=== PATIENT | female | born 1975 | race Two or more races ===

== ENCOUNTER 2025-05-14 09:13 | Outpatient (RCR) | payer MEDICAID, SELFPAY ==
--- NOTE | 2025-05-14 13:01 | CTCCONSULT_ITS ---
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 No dose reduction was done. Anastrozole caused itching Started on palbociclib and fulvestrant. Last dose of fulvestrant about 3 months ago. Patient is on Ibrance 05/14/2025 started on letrozole and ribociclib. Will keep fulvestrant for second line drugs HISTORY OF PRESENT ILLNESS: 49-year-old female with a diagnosis of ER NV positive HER2 2+ breast cancer. Patient was seen by oncologist after she was worked up for her arthritis and found to have multiple swellings on her head. Patient had intracranial bleed which led to the biopsy of the lymph node in her axilla confirming her diagnosis of breast cancer. Fortunately patient did not had any visceral involvement with cancer but had metastasis to her bones as well as to the brain. There was no masses seen in the brain as per documentation by an outside oncologist. OTHER MEDICAL HISTORY/CONDITIONS: Metastatic mammory carcinoma - dx 01/22/24 Diabetes Hyperlipidemia Perpheral neuropathy Depression/Anxiety Right axillary lymph node excisional biopsy - 01/22/24 FAMILY HISTORY: Cancer History:?Pat aunt - breast - dx 30's; Pat aunt - kidney - dx 60's SOCIAL HISTORY: Occupational?History:?Disabled Education?Level:?Completed High School Marital?Status:?Single Tobacco Use:?Quit 7 yrs ago; smoked 30yrs - 4-5 cigarettes/day ETOH?Use:?Denies Drug?Note:?Denies Social?History?Note:?Lives?with?dtrs [employer] 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 atorvastatin - 10 mg 1 tab Daily 2. Calcium 600 with Vitamin D3 - 600 mg-12.5 mcg (500 unit) 1 Capsule 1 CAPSULE TWICE DAILY 3. gabapentin - 300 mg 1 Capsule Twice a Day 4. Kisqali - 600 mg/day (200 mg x 3) 600 mg Daily 5. letrozole - 2.5 mg 1 tab Daily 6. metFORMIN - 500 mg 1 tab Twice a Day 7. ondansetron - 8 mg 1 tab 1 tab every 8hrs prn 8. ribociclib - 600 mg/day (200 mg x 3) 3 tab Daily 9. TylenoL - 500 mg 1 tab As directed?Palabra Meds? Medications Last Reconciled by Yue Mcdaniel RN on 05/14/2025 ALLERGIES: No Known Drug Allergies REVIEW OF SYSTEMS: A complete 14-point review of systems was performed and is negative except as noted in interval history. PHYSICAL EXAMINATION: VITAL SIGNS: Temperature?98.8, B/P?130/88, Height?56?inches, Oxygen?Saturation?97% Weight?151?lbs PAIN: 0 - No pain GENERAL APPEARANCE: Appears well, in no apparent distress, appropriately interactive. HEENT: Normocephalic, no temporal wasting, normal conjunctiva, no scleral icterus, normal hearing, lips without lesions, neck normal range of motion. CARDIOVASCULAR: Not assessed. PULMONARY: Normal respiratory effort, no respiratory distress or use of accessory muscles, speaking in full sentences, no tachypnea. EXTREMITIES: No pedal edema or cyanosis. SKIN: Normal skin appearance. NEUROLOGIC: Alert and oriented x4. PSHYCHIATRIC: Appropriate affect, mood normal, behavior normal, intact thought and speech. LABORATORY DATA: I have personally reviewed and interpreted each of the patient?s relevant lab tests, abnormal findings are below: Date ASSESSMENT/PLAN: ER positive HER2 2+ breast cancer Metastatic with bone and likely brain met Will start on ribociclib and letrozole\ counseled patient to continue Ibrance until she receive new ribociclib Advised to start taking letrozole immediately Calcium and vitamin D3 daily Will start on Zometa Will get PET CT scan to evaluate metastatic disease Will get brain MRI to see brain metastasis Patient will need director of social services follow-up Patient have young children and very little social support ORDERS: Order # Description [id number] PET/CT of Skull to mid-thigh for Restaging [id number] MRI + Brain + With W/O Contrast [id number] Follow Up 4 Week [id number] CBC with Auto Diff + Comprehensive Metabolic Panel - 12 RETURN TO CLINIC: I reviewed the diagnosis, prognosis, and recommended treatment/procedure options with the patient (and/or their legal software support representative), including the potential benefits, risks, side effects and alternative therapies. We also discussed the option of no treatment and the possibility of clinical trial participation, if applicable. All questions were addressed, and they demonstrated understanding. They provided informed consent to proceed with the proposed plan of care. BILLING AND COMPLIANCE: I reviewed external records from providers outside my specialty as summarized above. I spent a total of 50 minutes on this patient?s care on the day of their visit excluding time spent related to any billed procedures. This time includes time spent with the patient as well as time spent documenting in the medical record, reviewing patients records and tests, obtaining history, placing orders, communicating with other healthcare professionals, counseling the patient, family or caregiver, and/or care coordination for the diagnoses above. Electronically Signed by: Herbert Ontiveros MD T: 12:59 PM CC: PCP: Referring: Evaristo Foley This document was completed utilizing speech recognition software. Grammatical errors, random word insertions, pronoun errors, and incomplete sentences are an occasional consequence of this system due to software limitations, ambient noise, and hardware issues. Any formal questions or concerns about the content, text or information contained within the body of this dictation should be directly addressed to the provider for clarification.
== END 2025-05-18 23:59 | disposition home or self-care (01) ==
LOC: SCTC 09:13
PROVIDERS: PCP Physician Assistant; Referring Provider Physician Assistant; Visit Provider Internal Medicine Hematology & Oncology
DX: C50.911 Malignant neoplasm of unspecified site of right female breast (principal); C79.51 Secondary malignant neoplasm of bone; Z17.0 Estrogen receptor positive status [ER+]; Z17.22 Progesterone receptor negative status; Z17.31 Human epidermal growth factor receptor 2 positive status
CPT/HCPCS: 99213; G0463

== ENCOUNTER → 2025-06-11 | Outpatient (CLI) | payer MEDICAID, SELFPAY ==
--- NOTE | 2025-06-11 09:49 | EKG_ITS ---
[facility] Test Date: 2025-06-11 Pat Name: MONIQUE MILTON Department: Room: - Gender: Female Manager Steel: SUNG : 1975 Requested By: Herbert Ontiveros Order Number: [id number] Reading MD: Herbert Ontiveros Measurements Intervals [place] Rate: 72 P: 32 VT: 140 QRS: 17 QRSD: 81 T: -1 QT: 362 QTc: 397 Interpretive Statements SINUS RHYTHM POSSIBLE RIGHT VENTRICULAR CONDUCTION DELAY [RSR (QR) IN V1/V2] NONSPECIFIC T-WAVE ABNORMALITY No previous ECG available for comparison /store/S0/[id number]/[id number].pdf
== END | disposition home or self-care (01) ==
PROVIDERS: PCP Family Medicine; Referring Provider Internal Medicine Hematology & Oncology; Visit Provider Internal Medicine Hematology & Oncology
DX: C50.911 Malignant neoplasm of unspecified site of right female breast (principal)
CPT/HCPCS: 93005

== ENCOUNTER 2025-06-18 10:34 | Outpatient (RCR) | payer MEDICAID, SELFPAY ==
--- NOTE | 2025-06-18 11:39 | CTCFLWUP_ITS ---
Patient: MONIQUE MILTON : 1975 Page 4 of 6 FOLLOW UP NOTE DATE OF SERVICE: 06/18/2025 NAME: MONIQUE MILTON ACCOUNT: [id number] : 1975 AGE: 49 INTERVAL HISTORY: Patient is complaining of mild fatigue and constipation. She have very hard stools Patient is on anastrozole and Kisqali and doing well. She is scheduled to get her PET CT scan and MRI brain which was ordered at the last appointment. ONCOLOGY HISTORY: DIAGNOSIS: ER/CO positive breast cancer HER2 2+ DATE OF DIAGNOSIS: 01/22/2024 STAGE/TNM: Stage IV with brain and bone mets TREATMENT HISTORY: Care?Plan Start?Date Cycle Day Intent HISTORY OF PRESENT ILLNESS: 49-year-old female with a diagnosis of ER CO positive HER2 2+ breast cancer. Patient was seen by oncologist after she was worked up for her arthritis and found to have multiple swellings on her head. Patient had intracranial bleed which led to the biopsy of the lymph node in her axilla confirming her diagnosis of breast cancer. Fortunately patient did not had any visceral involvement with cancer but had metastasis to her bones as well as to the brain. There was no masses seen in the brain as per documentation by an outside oncologist. OTHER MEDICAL HISTORY/CONDITIONS: Metastatic mammory carcinoma - dx 01/22/24 Diabetes Hyperlipidemia Perpheral neuropathy Depression/Anxiety Right axillary lymph node excisional biopsy - 01/22/24 FAMILY HISTORY: Cancer History:?Pat aunt - breast - dx 30's; Pat aunt - kidney - dx 60's SOCIAL HISTORY: Occupational?History:?Disabled Education?Level:?Completed High School Marital?Status:?Single Tobacco Use:?Quit 7 yrs ago; smoked 30yrs - 4-5 cigarettes/day ETOH?Use:?Denies Drug?Note:?Denies Social?History?Note:?Lives?with?dtrs [employer]IAISON 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 atorvastatin - 10 mg 1 tab Daily 2. Calcium 600 with Vitamin D3 - 600 mg-12.5 mcg (500 unit) 1 Capsule 1 CAPSULE TWICE DAILY 3. gabapentin - 300 mg 1 Capsule Twice a Day 4. Kisqali - 600 mg/day (200 mg x 3) 600 mg Daily 5. Lax Stool Softener With Senna - 8.6-50 mg 2 tab Daily 6. letrozole - 2.5 mg 1 tab Daily 7. metFORMIN - 500 mg 1 tab Twice a Day 8. ondansetron - 8 mg 1 tab 1 tab every 8hrs prn 9. pantoprazole - 40 mg 1 tab Daily 10. ribociclib - 600 mg/day (200 mg x 3) 3 tab Daily 11. TylenoL - 500 mg 1 tab As directed 12. Women's 50+ Daily Formula - 400 mcg-500 mg calcium-20 mcg 1 tab Daily Medications Last Reconciled by Marysol Tran MD on 06/18/2025 ALLERGIES: No Known Drug Allergies REVIEW OF SYSTEMS: A complete 14-point review of systems was performed and is negative except as noted in interval history. PHYSICAL EXAMINATION: VITAL SIGNS: Temperature?97, B/P?143/82, Oxygen?Saturation?97% Weight?159?lbs PAIN: 0 - No pain ECOG Performance Status: 1 - Symptomatic; ambulatory; restricted in strenuous activity GENERAL APPEARANCE: Appears well, in no apparent distress, appropriately interactive. HEENT: Normocephalic, no temporal wasting, normal conjunctiva, no scleral icterus, normal hearing, lips without lesions, neck normal range of motion. CARDIOVASCULAR: Not assessed. PULMONARY: Normal respiratory effort, no respiratory distress or use of accessory muscles, speaking in full sentences, no tachypnea. EXTREMITIES: No pedal edema or cyanosis. SKIN: Normal skin appearance. NEUROLOGIC: Alert and oriented x4. PSHYCHIATRIC: Appropriate affect, mood normal, behavior normal, intact thought and speech. LABORATORY DATA: I have personally reviewed and interpreted each of the patient?s relevant lab tests, abnormal findings are below: Date ASSESSMENT/PLAN: ER positive HER2 2+ breast cancer Metastatic with bone and likely brain met Continue ribociclib and letrozole\ Calcium and vitamin D3 daily RTC in 4 weeks to follow-up on imaging Macrocytic anemia Ordered B12 folic acid and iron studies Advised to take multivitamin once patient has completed labs Advised to add vegetables and fruits to her diet Will follow on the labs at the next visit ORDERS: Order # Description [id number] Follow Up 4 Week RETURN TO CLINIC: I reviewed the diagnosis, prognosis, and recommended treatment/procedure options with the patient (and/or their legal advertising account representative), including the potential benefits, risks, side effects and alternative therapies. We also discussed the option of no treatment and the possibility of clinical trial participation, if applicable. All questions were addressed, and they demonstrated understanding. They provided informed consent to proceed with the proposed plan of care. BILLING AND COMPLIANCE: I reviewed external records from providers outside my specialty as summarized above. I spent a total of 50 minutes on this patient?s care on the day of their visit excluding time spent related to any billed procedures. This time includes time spent with the patient as well as time spent documenting in the medical record, reviewing patients records and tests, obtaining history, placing orders, communicating with other healthcare professionals, counseling the patient, family or caregiver, and/or care coordination for the diagnoses above. Electronically Signed by: Herbert Ontiveros MD T: 11:37 AM CC: PCP: Referring: Kwasi Dias This document was completed utilizing speech recognition software. Grammatical errors, random word insertions, pronoun errors, and incomplete sentences are an occasional consequence of this system due to software limitations, ambient noise, and hardware issues. Any formal questions or concerns about the content, text or information contained within the body of this dictation should be directly addressed to the provider for clarification.
== END 2025-07-18 23:59 | disposition home or self-care (01) ==
LOC: SCTC 10:34
PROVIDERS: PCP Physician Assistant; Referring Provider Family Medicine; Visit Provider Internal Medicine Hematology & Oncology
DX: C50.911 Malignant neoplasm of unspecified site of right female breast (principal); C79.51 Secondary malignant neoplasm of bone; Z79.811 Long term (current) use of aromatase inhibitors; Z17.0 Estrogen receptor positive status [ER+]; Z17.31 Human epidermal growth factor receptor 2 positive status; Z17.22 Progesterone receptor negative status; D53.9 Nutritional anemia, unspecified
CPT/HCPCS: 99212; G0463

== ENCOUNTER → 2025-06-25 | Outpatient (CLI) | payer MEDICAID, SELFPAY ==
--- NOTE | 2025-06-25 10:35 | EKG_ITS ---
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
[2025-06-25 12:08] LABS: Basophils # (Auto) 0.1 Thou/mm3 (0.0-0.2); Basophils % (Auto) 1 % (0-2.5); Eosinophils # (Auto) 0.1 Thou/mm3 (0.0-0.5); Eosinophils % (Auto) 1 % (0-10); Hematocrit 30.9 % (36.0-46.0); Hemoglobin 10.3 g/dL (12.0-16.0); Immature Granulocytes Auto 0.03 Thou/mm3 (0.00-0.00); Lymphocytes # (Auto) 2.6 Thou/mm3 (1.0-4.8); Lymphocytes % (Auto) 47 % (10-50); Mean Corpuscular HGB Conc 33.3 g/dl (31.0-37.0); Mean Corpuscular Hemoglobin 37.1 pg (25.0-35.0); Mean Corpuscular Volume 111 fL (80-100); Monocytes # (Auto) 0.7 Thou/mm3 (0.0-0.8); Monocytes % (Auto) 12 % (0-12); Neutrophils # (Auto) 2.1 Thou/mm3 (1.8-7.7); Neutrophils % (Auto) 37 % (37-80); Nucleated Red Blood Cell # 0.04 Thou/mm3 (0.00-0.00); Nucleated Red Blood Cell % 1 /100 WBC (0); Platelet Count 228 Thou/mm3 (140-440); RDW Standard Deviation 65.5 fL (36.4-46.3); Red Blood Count 2.78 Miln/mm3 (4.00-5.20); White Blood Count 5.6 Thou/mm3 (3.6-11.0)
[2025-06-25 12:17] LABS: Alanine Aminotransferase 37 U/L (10-49); Albumin, Serum 4.7 gm/dL (3.5-5.0); Albumin/Globulin Ratio 1.8 (1.2-2.2); Alkaline Phosphatase 71 U/L (46-116); Anion Gap 15 (7-16); Aspartate Amino Transferase 45 U/L (0-34); BUN/Creatinine Ratio 7 Ratio (12-20); Bilirubin,Total 0.6 mg/dL (0.3-1.2); Blood Urea Nitrogen 10 mg/dL (9-23); Calcium 9.7 mg/dL (8.3-10.6); Calcium (Corrected) 9.7 mg/dL (8.5-10.1); Carbon Dioxide 22.1 mMol/L (20.0-31.0); Chloride 104 mMol/L (98-107); Creatinine (Component) 1.4 mg/dL (0.6-1.3); Globulin 2.6 gm/dL (2.3-3.5); Glucose 226 mg/dL (74-106); Osmolality,Calculated 287 (275-295); Potassium 3.9 mMol/L (3.4-5.1); Sodium 141 mMol/L (136-145); Total Protein 7.3 gm/dL (5.7-8.2); eGFR 46 See Note
[2025-06-25 17:04] LABS: Path Review Blood Smear Sent to Pathologist
== END | disposition home or self-care (01) ==
LOC: SEKG 10:13
PROVIDERS: PCP Physician Assistant; Referring Provider Internal Medicine Hematology & Oncology; Visit Provider Internal Medicine Hematology & Oncology
DX: C50.911 Malignant neoplasm of unspecified site of right female breast (principal)
CPT/HCPCS: 36415; 80053; 85025; 93005

== ENCOUNTER → 2025-07-08 | Outpatient (CLI) | payer MEDICAID, SELFPAY ==
[2025-07-08 09:52] LABS: HCG Qualitative,Urine Negative
--- NOTE | 2025-07-08 10:15 | XR_ITS ---
EXAMINATION: PET/CT FUSION SKULL TO THIGH EXAM DATE AND TIME: July 08, 2025, 1125 hours, no priors INDICATIONS: Breast cancer diagnosis restaging posttreatment CTDI:vol (mGy) 6.03 DLP: (mGycm) 476.26 PROCEDURE: 15.3 mCi FDG was administered intravenously To allow for distribution and uptake of radiotracer, the patient was allowed to rest quietly in a shielded room. Imaging was performed on an integrated 16-slice PET/CT scanner, with scanning from the skull base to the mid thigh. Serum blood glucose at the time of the injection was measured 146 mg/dL. CT scanning was performed without oral or intravenous contrast material. FINDINGS: Head and Neck: There is no edith hypermetabolism in the neck. The visualized portions of the brain are normal in appearance on CT. Chest: There is no edith hypermetabolism in the chest. There are no pulmonary nodules. No breast, chest wall or hypermetabolic axillary activity Abdomen and Pelvis: There is no edith hypermetabolism in retroperitoneal or pelvic chains. The spleen is normal in size and FDG avidity. Musculoskeletal: Widespread osteoblastic metastatic disease involving all visualized osseous structures IMPRESSION: Widespread osteoblastic metastatic disease involving all visualized osseous structures
== END | disposition home or self-care (01) ==
LOC: CDIM 08:50 → COPL 09:15 → CDIM 07-23 09:30
PROVIDERS: Referring Provider Internal Medicine Hematology & Oncology; Visit Provider Internal Medicine Hematology & Oncology
DX: C79.9 Secondary malignant neoplasm of unspecified site (principal); C50.911 Malignant neoplasm of unspecified site of right female breast; Z32.00 Encounter for pregnancy test, result unknown
CPT/HCPCS: 78815; 81025; A9552

== ENCOUNTER → 2025-07-09 | Outpatient (CLI) | payer MEDICAID, SELFPAY ==
--- NOTE | 2025-07-09 12:19 | EKG_ITS ---
[facility] Test Date: 2025-07-09 Pat Name: MONIQUE MILTON Department: Room: - Gender: Female Hand Sole Sewer: NAEL : 1975 Requested By: Herbert Ontiveros Order Number: [id number] Reading MD: Herbert Ontiveros Measurements Intervals [place] Rate: 66 P: 41 AR: 139 QRS: 20 QRSD: 86 T: 10 QT: 350 QTc: 369 Interpretive Statements SINUS RHYTHM POSSIBLE RIGHT VENTRICULAR CONDUCTION DELAY [RSR (QR) IN V1/V2] NONSPECIFIC ST & T-WAVE ABNORMALITY Compared to ECG 06/25/2025 10:59:11 T-wave abnormality now present /store/S0/[id number]/ecg/[id number].pdf
[2025-07-09 12:41] LABS: Basophils # (Auto) 0.0 Thou/mm3 (0.0-0.2); Basophils % (Auto) 1 % (0-2.5); Eosinophils # (Auto) 0.1 Thou/mm3 (0.0-0.5); Eosinophils % (Auto) 2 % (0-10); Hematocrit 28.2 % (36.0-46.0); Hemoglobin 9.4 g/dL (12.0-16.0); Immature Granulocytes Auto 0.02 Thou/mm3 (0.00-0.00); Lymphocytes # (Auto) 2.3 Thou/mm3 (1.0-4.8); Lymphocytes % (Auto) 50 % (10-50); Mean Corpuscular HGB Conc 33.3 g/dl (31.0-37.0); Mean Corpuscular Hemoglobin 36.9 pg (25.0-35.0); Mean Corpuscular Volume 111 fL (80-100); Monocytes # (Auto) 0.3 Thou/mm3 (0.0-0.8); Monocytes % (Auto) 7 % (0-12); Neutrophils # (Auto) 1.9 Thou/mm3 (1.8-7.7); Neutrophils % (Auto) 41 % (37-80); Nucleated Red Blood Cell # 0.00 Thou/mm3 (0.00-0.00); Nucleated Red Blood Cell % 0 /100 WBC (0); Platelet Count 234 Thou/mm3 (140-440); RDW Standard Deviation 61.5 fL (36.4-46.3); Red Blood Count 2.55 Miln/mm3 (4.00-5.20); White Blood Count 4.6 Thou/mm3 (3.6-11.0)
[2025-07-09 12:50] LABS: Alanine Aminotransferase 40 U/L (10-49); Albumin, Serum 4.6 gm/dL (3.5-5.0); Albumin/Globulin Ratio 2.3 (1.2-2.2); Alkaline Phosphatase 52 U/L (46-116); Anion Gap 15 (7-16); Aspartate Amino Transferase 65 U/L (0-34); BUN/Creatinine Ratio 12 Ratio (12-20); Bilirubin,Total 0.4 mg/dL (0.3-1.2); Blood Urea Nitrogen 23 mg/dL (9-23); Calcium 9.9 mg/dL (8.3-10.6); Calcium (Corrected) 9.9 mg/dL (8.5-10.1); Carbon Dioxide 21.4 mMol/L (20.0-31.0); Chloride 107 mMol/L (98-107); Creatinine (Component) 1.9 mg/dL (0.6-1.3); Globulin 2.0 gm/dL (2.3-3.5); Glucose 146 mg/dL (74-106); Osmolality,Calculated 291 (275-295); Potassium 4.4 mMol/L (3.4-5.1); Sodium 143 mMol/L (136-145); Total Protein 6.6 gm/dL (5.7-8.2); eGFR 32 See Note
== END | disposition home or self-care (01) ==
PROVIDERS: Referring Provider Internal Medicine Hematology & Oncology; Visit Provider Internal Medicine Hematology & Oncology
DX: C50.911 Malignant neoplasm of unspecified site of right female breast (principal)
CPT/HCPCS: 36415; 80053; 85025; 93005

== ENCOUNTER → 2025-07-16 | Outpatient (CLI) | payer MEDICAID, SELFPAY ==
--- NOTE | 2025-07-16 10:30 | ECHO_ITS ---
Patient Info Name: Brittnee Chase Age: 49 years : 1975 Gender: Female Ht: 145 cm Wt: 61 kg BSA: 1.59 m2 BP: 134 / 71 mmHg HR: 70 bpm Exam Date: 07/16/2025 10:55 AM Admit Date: 07/16/2025 Site: [facility] Room Number: Echo room Patient Status: P Technical Quality: Fair Exam Type: CA echo doppler complete Unmanned Equipment Operator: Rhianna Park Ordering Physician: Herbert Ontiveros Referring Physician: Herbert Ontiveros Study Info Indications Malignant neoplasm of unspecified site of right female breas - Primary Location: SDIM Left Ventricular Outflow Tract Name Value Normal LVOT 2D LVOT Diameter 1.8 cm LVOT Doppler LVOT Peak Velocity 128 cm/s LVOT Mean Gradient 3 mmHg LVOT VTI 23 cm LVOT VTI/AV VTI Ratio 0.8 LVOT Stroke Volume 58 ml Pulmonic Valve Name Value Normal PV Doppler PV Peak Velocity 112 cm/s Mitral Valve Name Value Normal MV Doppler MV Decel Payette 352 cm/s2 MV PHT 66 ms MV Area (PHT) 3.3 cm2 4.0-5.0 MV Diastolic Function MV E Peak Velocity 81 cm/s MV A Peak Velocity 78 cm/s MV E/A 1.0 MV Annular TDI MV Septal e' Velocity 5.6 cm/s MV E/e' (Septal) 14.5 MV Lateral e' Velocity 9.9 cm/s MV E/e' (Lateral) 8.1 MV e' Average 7.73 cm/s MV E/e' (Average) 11.3 Tricuspid Valve Name Value Normal TV Regurgitation Doppler TR Peak Velocity 255 cm/s Estimated PAP/RSVP RA Pressure 3 mmHg <=5 PA Systolic Pressure 29 mmHg <36 RV Systolic Pressure 29 mmHg <36 Aortic Valve Name Value Normal AV 2D/MM AV Cusp Sep (MM) 1.4 cm AV Doppler AV Peak Velocity 158 cm/s AV Mean Gradient 5 mmHg AV VTI 30 cm AV Area (Cont Eq VTI) 2.0 cm2 >=3.0 AV Area (Cont Eq Franky) 2.1 cm2 AV DI (Franky) 0.81 AV Regurgitation 2D LVOT Area 2.5 cm2 Ventricles Name Value Normal LV Dimensions 2D/MM IVS Diastolic Thickness (2D) 0.8 cm 0.6-0.9 LVID Diastole (2D) 3.8 cm 3.8-5.2 LVIW Diastolic Thickness (2D) 1.0 cm 0.6-0.9 LVID Systole (2D) 2.5 cm 2.2-3.5 LVOT Diameter 1.8 cm LV Mass (2D Cubed) 101.06 g 67.00-162.00 LV Mass Index (2D Cubed) 63 g/m2 43-95 Relative Wall Thickness (2D) 0.53 <=0.42 IVS/LVIW Diastolic Thickness (2D) 0.80 0.00-1.50 LV Fractional Shortening/Ejection Fraction 2D/MM LV Fractional Shortening (2D) 34 % 27-45 LV EF (2D Teichholz) 64 % Atria Name Value Normal LA Dimensions LA Volume (4C A-L) 34 ml LA Volume (BP A-L) 28 ml Left Ventricle Left ventricular chamber dimension is normal. Left ventricular systolic function is normal with visually estimated ejection fraction of 60-65%. There is normal geometry noted in the left ventricle. Left ventricular segmental wall motion is normal. The left ventricular diastolic function is normal. Right Ventricle Right ventricular chamber dimension is normal. Right ventricular systolic function is normal. Left Atrium Left atrial chamber dimension is normal. Right Atrium Right atrial chamber dimension is normal. Aortic Valve The aortic valve is trileaflet. There is no aortic valve sclerosis. There is no aortic valve stenosis with a peak velocity of 158 cm/s, mean gradient of 5 mmHg, and aortic valve area of 2.0 cm2. There is no aortic valve regurgitation. Pulmonic Valve The pulmonic valve is normal. There is no pulmonic valve stenosis. There is trace pulmonic regurgitation. Mitral Valve The mitral valve has normal leaflets. There is no mitral valve stenosis. There is trace mitral valve regurgitation. Tricuspid Valve The tricuspid valve leaflets are normal. There is no significant tricuspid valve stenosis. There is mild tricuspid valve regurgitation. No pulmonary hypertension, estimated pulmonary arterial systolic pressure is 29 mmHg and systemic blood pressure of 134 mmHg in systole. Pericardium/Pleural The pericardium appears normal. There is no pericardial effusion. No pleural effusion visualized. Inferior Vena Cava Normal inferior vena cava with >50% collapse upon inspiration consistent with normal right atrial pressure, 3 mmHg. Aorta The aortic measurements are indexed to age and body surface area. The aortic root at the sinus of Valsalva is not well visualized. The prox ascending aorta is not well visualized. Summary 1. Left ventricle size is normal and systolic function is normal. Visually estimated ejection fraction is 60-65%. The diastolic function is normal. 2. Right ventricle size is normal and systolic function is normal. Estimated PASP is 29 mmHg. 3. There is tricuspid mild regurgitation. 4. There is trace regurgitation. 5. Normal IVC with estimated RA pressure 3 mmHg. Report Signatures Finalized by Pearl Palafox on 07/21/2025 01:55 PM
== END | disposition home or self-care (01) ==
PROVIDERS: PCP Physician Assistant; Referring Provider Internal Medicine Hematology & Oncology; Visit Provider Internal Medicine Hematology & Oncology
DX: I08.1 Rheumatic disorders of both mitral and tricuspid valves (principal); C50.911 Malignant neoplasm of unspecified site of right female breast
CPT/HCPCS: 93306

== ENCOUNTER → 2025-07-22 | Outpatient (CLI) | payer MEDICAID, SELFPAY ==
[2025-07-22 07:15] LABS: HCG Qualitative,Urine Negative
== END | disposition home or self-care (01) ==
PROVIDERS: PCP Physician Assistant; Referring Provider Internal Medicine Hematology & Oncology; Visit Provider Internal Medicine Hematology & Oncology
DX: Z53.8 Procedure and treatment not carried out for other reasons (principal); C50.911 Malignant neoplasm of unspecified site of right female breast; Z32.00 Encounter for pregnancy test, result unknown
CPT/HCPCS: 81025

== ENCOUNTER → 2025-07-23 | Outpatient (CLI) | payer MEDICAID, SELFPAY ==
--- NOTE | 2025-07-23 09:38 | EKG_ITS ---
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
[2025-07-23 10:31] LABS: Basophils # (Auto) 0.1 Thou/mm3 (0.0-0.2); Basophils % (Auto) 1 % (0-2.5); Eosinophils # (Auto) 0.1 Thou/mm3 (0.0-0.5); Eosinophils % (Auto) 1 % (0-10); Hematocrit 26.3 % (36.0-46.0); Hemoglobin 8.9 g/dL (12.0-16.0); Immature Granulocytes Auto 0.03 Thou/mm3 (0.00-0.00); Lymphocytes # (Auto) 2.2 Thou/mm3 (1.0-4.8); Lymphocytes % (Auto) 48 % (10-50); Mean Corpuscular HGB Conc 33.8 g/dl (31.0-37.0); Mean Corpuscular Hemoglobin 37.4 pg (25.0-35.0); Mean Corpuscular Volume 111 fL (80-100); Monocytes # (Auto) 0.4 Thou/mm3 (0.0-0.8); Monocytes % (Auto) 10 % (0-12); Neutrophils # (Auto) 1.7 Thou/mm3 (1.8-7.7); Neutrophils % (Auto) 38 % (37-80); Nucleated Red Blood Cell # 0.00 Thou/mm3 (0.00-0.00); Nucleated Red Blood Cell % 0 /100 WBC (0); Platelet Count 221 Thou/mm3 (140-440); RDW Standard Deviation 62.0 fL (36.4-46.3); Red Blood Count 2.38 Miln/mm3 (4.00-5.20); White Blood Count 4.5 Thou/mm3 (3.6-11.0)
[2025-07-23 10:44] LABS: Alanine Aminotransferase 34 U/L (10-49); Albumin, Serum 4.5 gm/dL (3.5-5.0); Albumin/Globulin Ratio 2.4 (1.2-2.2); Alkaline Phosphatase 55 U/L (46-116); Anion Gap 9 (7-16); Aspartate Amino Transferase 48 U/L (0-34); BUN/Creatinine Ratio 10 Ratio (12-20); Bilirubin,Total 0.3 mg/dL (0.3-1.2); Blood Urea Nitrogen 11 mg/dL (9-23); Calcium 9.3 mg/dL (8.3-10.6); Calcium (Corrected) 9.3 mg/dL (8.5-10.1); Carbon Dioxide 24.0 mMol/L (20.0-31.0); Chloride 112 mMol/L (98-107); Creatinine (Component) 1.1 mg/dL (0.6-1.3); Globulin 1.9 gm/dL (2.3-3.5); Glucose 152 mg/dL (74-106); Osmolality,Calculated 291 (275-295); Potassium 4.1 mMol/L (3.4-5.1); Sodium 145 mMol/L (136-145); Total Protein 6.4 gm/dL (5.7-8.2); eGFR > 60 See Note
== END | disposition home or self-care (01) ==
PROVIDERS: Referring Provider Internal Medicine Hematology & Oncology; Visit Provider Internal Medicine Hematology & Oncology
DX: C50.911 Malignant neoplasm of unspecified site of right female breast (principal)
CPT/HCPCS: 36415; 80053; 85025; 93005

== ENCOUNTER 2025-07-31 11:55 | Outpatient (RCR) | payer MEDICAID, SELFPAY ==
--- NOTE | 2025-08-03 19:17 | CTCFLWUP_ITS ---
Patient: MONIQUE MILTON : 1975 Page 4 of 6 FOLLOW UP NOTE DATE OF SERVICE: 07/31/2025 NAME: MONIQUE MILTON ACCOUNT: [id number] : 1975 AGE: 50 INTERVAL HISTORY: Patient is complaining of mild fatigue and constipation. She have very hard stools Patient is on anastrozole and Kisqali and doing well. She is scheduled to get her PET CT scan and MRI brain which was ordered at the last appointment. Could not get her MRI completed as her creatinine was elevated. ONCOLOGY HISTORY:?[facility] Hx? DIAGNOSIS: ER/PA positive breast cancer HER2 2+ DATE OF DIAGNOSIS: 01/22/2024 STAGE/TNM: Stage IV with brain and bone mets TREATMENT HISTORY: Care?Plan Start?Date Cycle Day Intent HISTORY OF PRESENT ILLNESS: 50-year-old female with a diagnosis of ER PA positive HER2 2+ breast cancer. Patient was seen by oncologist after she was worked up for her arthritis and found to have multiple swellings on her head. Patient had intracranial bleed which led to the biopsy of the lymph node in her axilla confirming her diagnosis of breast cancer. Fortunately patient did not had any visceral involvement with cancer but had metastasis to her bones as well as to the brain. There was no masses seen in the brain as per documentation by an outside oncologist. 07/08/[address] scan shows widespread osteoblastic metastatic disease involving all visualized osseous structures OTHER MEDICAL HISTORY/CONDITIONS: Metastatic mammory carcinoma - dx 01/22/24 Diabetes Hyperlipidemia Perpheral neuropathy Depression/Anxiety Right axillary lymph node excisional biopsy - 01/22/24 FAMILY HISTORY: Cancer History:?Pat aunt - breast - dx 30's; Pat aunt - kidney - dx 60's SOCIAL HISTORY: Occupational?History:?Disabled Education?Level:?Completed High School Marital?Status:?Single Tobacco Use:?Quit 7 yrs ago; smoked 30yrs - 4-5 cigarettes/day ETOH?Use:?Denies Drug?Note:?Denies Social?History?Note:?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 atorvastatin - 10 mg 1 tab Daily 2. Calcium 600 with Vitamin D3 - 600 mg-12.5 mcg (500 unit) 1 Capsule 1 CAPSULE TWICE DAILY 3. gabapentin - 300 mg 1 Capsule Twice a Day 4. Kisqali - 600 mg/day (200 mg x 3) 600 mg Daily 5. Lax Stool Softener With Senna - 8.6-50 mg 2 tab Daily 6. letrozole - 2.5 mg 1 tab Daily 7. metFORMIN - 500 mg 1 tab Twice a Day 8. ondansetron - 8 mg 1 tab 1 tab every 8hrs prn 9. pantoprazole - 40 mg 1 tab Daily 10. ribociclib - 600 mg/day (200 mg x 3) 3 tab Daily 11. TylenoL - 500 mg 1 tab As directed 12. Women's 50+ Daily Formula - 400 mcg-500 mg calcium-20 mcg 1 tab Daily?Palabra Meds? Medications Last Reconciled by Yue Mcdaniel RN on 07/31/2025 ALLERGIES: No Known Drug Allergies REVIEW OF SYSTEMS: A complete 14-point review of systems was performed and is negative except as noted in interval history. PHYSICAL EXAMINATION:?[facility] PE? VITAL SIGNS: Temperature?98, B/P?117/76, Oxygen?Saturation?98% Weight?146?lbs PAIN: 0 - No pain ECOG Performance Status: 1 - Symptomatic; ambulatory; restricted in strenuous activity GENERAL APPEARANCE: Appears well, in no apparent distress, appropriately interactive. HEENT: Normocephalic, no temporal wasting, normal conjunctiva, no scleral icterus, normal hearing, lips without lesions, neck normal range of motion. CARDIOVASCULAR: Not assessed. PULMONARY: Normal respiratory effort, no respiratory distress or use of accessory muscles, speaking in full sentences, no tachypnea. EXTREMITIES: No pedal edema or cyanosis. SKIN: Normal skin appearance. NEUROLOGIC: Alert and oriented x4. PSHYCHIATRIC: Appropriate affect, mood normal, behavior normal, intact thought and speech. LABORATORY DATA: I have personally reviewed and interpreted each of the patient?s relevant lab tests, abnormal findings are below: Date 07/09/25 07/23/25 ??WHITE?BLOOD?COUNT?(Thou/mm3) 4.6 4.5 ??RED?BLOOD?COUNT?(Miln/mm3) 2.55?L 2.38?L ??HEMOGLOBIN?(gm/dl) 9.4?L 8.9?L ??HEMATOCRIT?(%) 28.2?L 26.3?L ??PLATELET?COUNT?(Thou/mm3) 234 221 ??NEUTROPHILS?%,?AUTO?(%) 41 38 ??LYMPH?%,?AUTO?(%) 50 48 ??NEUTROPHILS,?AUTO?(Thou/mm3) 1.9 1.7?L ??GLUCOSE,RANDOM?(mg/dL) 146?H 152?H ??BLOOD?UREA?NITROGEN?(mg/dL) 23 11 ??CREATININE?(mg/dL) 1.90?H 1.10 ??SODIUM?(mmol/L) 143 145 ??POTASSIUM?(mmol/L) 4.4 4.1 ??CHLORIDE?(mmol/L) 107 112?H ??CrCl?(CandG)?(ml/min) 39.88 68.11 ??AST/SGOT?(Unit/L) 65?H 48?H ??ALT/SGPT?(Unit/L) 40 34 ??ALKALINE?PHOSPHATASE?(Unit/L) 52 55 ??BILIRUBIN,?TOTAL?(mg/dL) 0.4 0.3 ??PROTEIN?TOTAL?(gm/dl) 6.6 6.4 ??ALBUMIN,?SERUM?(gm/dl) 4.6 4.5 ??GLOBULIN?(gm/dl) 2.0?L 1.9?L ??ALBUMIN/GLOBULIN?RATIO 2.3?H 2.4?H ??CALCIUM,?SERUM?(mg/dL) 9.9 9.3 ??CALCIUM?SERUM?(CORRECTED)?(mg/dL) 9.9 9.3 ASSESSMENT/PLAN:?Jazmin Ontiveros Assessment/Plan? ER positive HER2 2+ breast cancer Metastatic with bone and likely brain met Continue ribociclib and letrozole\ Calcium and vitamin D3 daily RTC in 6 to 8 weeks to follow-up on MRI and naterra Macrocytic anemia Ordered B12 folic acid and iron studies Advised to take multivitamin once patient has completed labs Advised to add vegetables and fruits to her diet Will follow on the labs at the next visit ORDERS: Order # Description [id number] Follow Up 2 Months [id number] Comprehensive Metabolic Panel - 12 + CBC with Auto Diff + CA 15-3 RETURN TO CLINIC: I reviewed the diagnosis, prognosis, and recommended treatment/procedure options with the patient (and/or their legal publications sales representative), including the potential benefits, risks, side effects and alternative therapies. We also discussed the option of no treatment and the possibility of clinical trial participation, if applicable. All questions were addressed, and they demonstrated understanding. They provided informed consent to proceed with the proposed plan of care. BILLING AND COMPLIANCE: I reviewed external records from providers outside my specialty as summarized above. I spent a total of 50 minutes on this patient?s care on the day of their visit excluding time spent related to any billed procedures. This time includes time spent with the patient as well as time spent documenting in the medical record, reviewing patients records and tests, obtaining history, placing orders, communicating with other healthcare professionals, counseling the patient, family or caregiver, and/or care coordination for the diagnoses above. Electronically Signed by: Herbert Ontiveros MD T: 7:15 PM CC: PCP: Referring: Noreen Leblanc This document was completed utilizing speech recognition software. Grammatical errors, random word insertions, pronoun errors, and incomplete sentences are an occasional consequence of this system due to software limitations, ambient noise, and hardware issues. Any formal questions or concerns about the content, text or information contained within the body of this dictation should be directly addressed to the provider for clarification.
== END 2025-08-17 23:59 | disposition home or self-care (01) ==
LOC: SCTC 11:55
PROVIDERS: PCP Physician Assistant; Visit Provider Internal Medicine Hematology & Oncology
DX: C50.911 Malignant neoplasm of unspecified site of right female breast (principal); C79.51 Secondary malignant neoplasm of bone; Z17.0 Estrogen receptor positive status [ER+]; Z17.22 Progesterone receptor negative status; Z17.31 Human epidermal growth factor receptor 2 positive status; Z79.811 Long term (current) use of aromatase inhibitors; D53.9 Nutritional anemia, unspecified
CPT/HCPCS: 99212; G0463

== ENCOUNTER → 2025-08-06 | Outpatient (CLI) | payer MEDICAID, SELFPAY ==
[2025-08-06 12:26] LABS: Basophils # (Auto) 0.0 Thou/mm3 (0.0-0.2); Basophils % (Auto) 1 % (0-2.5); Eosinophils # (Auto) 0.0 Thou/mm3 (0.0-0.5); Eosinophils % (Auto) 1 % (0-10); Hematocrit 29.7 % (36.0-46.0); Hemoglobin 9.9 g/dL (12.0-16.0); Immature Granulocytes Auto 0.03 Thou/mm3 (0.00-0.00); Lymphocytes # (Auto) 1.5 Thou/mm3 (1.0-4.8); Lymphocytes % (Auto) 31 % (10-50); Mean Corpuscular HGB Conc 33.3 g/dl (31.0-37.0); Mean Corpuscular Hemoglobin 36.1 pg (25.0-35.0); Mean Corpuscular Volume 108 fL (80-100); Monocytes # (Auto) 0.2 Thou/mm3 (0.0-0.8); Monocytes % (Auto) 3 % (0-12); Neutrophils # (Auto) 3.2 Thou/mm3 (1.8-7.7); Neutrophils % (Auto) 64 % (37-80); Nucleated Red Blood Cell # 0.00 Thou/mm3 (0.00-0.00); Nucleated Red Blood Cell % 0 /100 WBC (0); Platelet Count 275 Thou/mm3 (140-440); RDW Standard Deviation 56.3 fL (36.4-46.3); Red Blood Count 2.74 Miln/mm3 (4.00-5.20)
[2025-08-06 12:35] LABS: White Blood Count 5.6 Thou/mm3 (3.6-11.0)
[2025-08-06 12:38] LABS: Alanine Aminotransferase 45 U/L (10-49); Albumin, Serum 5.3 gm/dL (3.5-5.0); Albumin/Globulin Ratio 2.4 (1.2-2.2); Alkaline Phosphatase 70 U/L (46-116); Anion Gap 18 (7-16); Aspartate Amino Transferase 47 U/L (0-34); BUN/Creatinine Ratio 12 Ratio (12-20); Bilirubin,Total 0.4 mg/dL (0.3-1.2); Blood Urea Nitrogen 34 mg/dL (9-23); Calcium 9.9 mg/dL (8.3-10.6); Calcium (Corrected) 9.9 mg/dL (8.5-10.1); Carbon Dioxide 17.7 mMol/L (20.0-31.0); Chloride 106 mMol/L (98-107); Creatinine (Component) 2.8 mg/dL (0.6-1.3); Globulin 2.2 gm/dL (2.3-3.5); Glucose 191 mg/dL (74-106); Osmolality,Calculated 295 (275-295); Potassium 4.8 mMol/L (3.4-5.1); Sodium 142 mMol/L (136-145); Total Protein 7.5 gm/dL (5.7-8.2); eGFR 20 See Note
--- NOTE | 2025-08-06 14:52 | EKG_ITS ---
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
== END | disposition home or self-care (01) ==
PROVIDERS: Referring Provider Internal Medicine Hematology & Oncology; Visit Provider Internal Medicine Hematology & Oncology
DX: C50.911 Malignant neoplasm of unspecified site of right female breast (principal)
CPT/HCPCS: 36415; 80053; 85025; 93005

== ENCOUNTER → 2025-08-20 | Outpatient (CLI) | payer MEDICAID, SELFPAY ==
--- NOTE | 2025-08-20 09:18 | EKG_ITS ---
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
[2025-08-20 10:15] LABS: Basophils # (Auto) 0.1 Thou/mm3 (0.0-0.2); Basophils % (Auto) 1 % (0-2.5); Eosinophils # (Auto) 0.1 Thou/mm3 (0.0-0.5); Eosinophils % (Auto) 1 % (0-10); Hematocrit 28.4 % (36.0-46.0); Hemoglobin 9.4 g/dL (12.0-16.0); Immature Granulocytes Auto 0.03 Thou/mm3 (0.00-0.00); Lymphocytes # (Auto) 3.7 Thou/mm3 (1.0-4.8); Lymphocytes % (Auto) 57 % (10-50); Mean Corpuscular HGB Conc 33.1 g/dl (31.0-37.0); Mean Corpuscular Hemoglobin 36.0 pg (25.0-35.0); Mean Corpuscular Volume 109 fL (80-100); Monocytes # (Auto) 0.7 Thou/mm3 (0.0-0.8); Monocytes % (Auto) 10 % (0-12); Neutrophils # (Auto) 2.0 Thou/mm3 (1.8-7.7); Neutrophils % (Auto) 31 % (37-80); Nucleated Red Blood Cell # 0.00 Thou/mm3 (0.00-0.00); Nucleated Red Blood Cell % 0 /100 WBC (0); Platelet Count 237 Thou/mm3 (140-440); RDW Standard Deviation 57.7 fL (36.4-46.3); Red Blood Count 2.61 Miln/mm3 (4.00-5.20); White Blood Count 6.6 Thou/mm3 (3.6-11.0)
[2025-08-20 10:31] LABS: Alanine Aminotransferase 38 U/L (10-49); Albumin, Serum 4.7 gm/dL (3.5-5.0); Albumin/Globulin Ratio 1.7 (1.2-2.2); Alkaline Phosphatase 64 U/L (46-116); Anion Gap 13 (7-16); Aspartate Amino Transferase 44 U/L (0-34); BUN/Creatinine Ratio 11 Ratio (12-20); Bilirubin,Total 0.3 mg/dL (0.3-1.2); Blood Urea Nitrogen 20 mg/dL (9-23); Calcium 9.9 mg/dL (8.3-10.6); Calcium (Corrected) 9.9 mg/dL (8.5-10.1); Carbon Dioxide 24.1 mMol/L (20.0-31.0); Chloride 106 mMol/L (98-107); Creatinine (Component) 1.9 mg/dL (0.6-1.3); Globulin 2.7 gm/dL (2.3-3.5); Glucose 103 mg/dL (74-106); Osmolality,Calculated 287 (275-295); Potassium 3.7 mMol/L (3.4-5.1); Sodium 143 mMol/L (136-145); Total Protein 7.4 gm/dL (5.7-8.2); eGFR 31 See Note
[2025-08-20 11:48] LABS: CA 15-3 29.0 U/mL (<32.4)
== END | disposition home or self-care (01) ==
PROVIDERS: PCP Physician Assistant; Referring Provider Internal Medicine Hematology & Oncology; Visit Provider Internal Medicine Hematology & Oncology
DX: C50.911 Malignant neoplasm of unspecified site of right female breast (principal)
CPT/HCPCS: 36415; 80053; 85025; 86300; 93005

== ENCOUNTER → 2025-09-03 | Outpatient (CLI) | payer MEDICAID, SELFPAY ==
[2025-09-03 09:51] LABS: Basophils # (Auto) 0.0 Thou/mm3 (0.0-0.2); Basophils % (Auto) 1 % (0-2.5); Eosinophils # (Auto) 0.1 Thou/mm3 (0.0-0.5); Eosinophils % (Auto) 1 % (0-10); Hematocrit 27.3 % (36.0-46.0); Hemoglobin 9.1 g/dL (12.0-16.0); Immature Granulocytes Auto 0.02 Thou/mm3 (0.00-0.00); Lymphocytes # (Auto) 2.4 Thou/mm3 (1.0-4.8); Lymphocytes % (Auto) 46 % (10-50); Mean Corpuscular HGB Conc 33.3 g/dl (31.0-37.0); Mean Corpuscular Hemoglobin 35.5 pg (25.0-35.0); Mean Corpuscular Volume 107 fL (80-100); Monocytes # (Auto) 0.3 Thou/mm3 (0.0-0.8); Monocytes % (Auto) 6 % (0-12); Neutrophils # (Auto) 2.5 Thou/mm3 (1.8-7.7); Neutrophils % (Auto) 46 % (37-80); Nucleated Red Blood Cell # 0.00 Thou/mm3 (0.00-0.00); Nucleated Red Blood Cell % 0 /100 WBC (0); Platelet Count 245 Thou/mm3 (140-440); RDW Standard Deviation 53.4 fL (36.4-46.3); Red Blood Count 2.56 Miln/mm3 (4.00-5.20); White Blood Count 5.3 Thou/mm3 (3.6-11.0)
[2025-09-03 10:11] LABS: Alanine Aminotransferase 23 U/L (10-49); Albumin, Serum 4.8 gm/dL (3.5-5.0); Albumin/Globulin Ratio 1.6 (1.2-2.2); Alkaline Phosphatase 59 U/L (46-116); Anion Gap 18 (7-16); Aspartate Amino Transferase 28 U/L (0-34); BUN/Creatinine Ratio 11 Ratio (12-20); Bilirubin,Total 0.5 mg/dL (0.3-1.2); Blood Urea Nitrogen 29 mg/dL (9-23); Calcium 10.1 mg/dL (8.3-10.6); Calcium (Corrected) 10.1 mg/dL (8.5-10.1); Carbon Dioxide 19.2 mMol/L (20.0-31.0); Chloride 107 mMol/L (98-107); Creatinine (Component) 2.7 mg/dL (0.6-1.3); Globulin 3.0 gm/dL (2.3-3.5); Glucose 101 mg/dL (74-106); Osmolality,Calculated 292 (275-295); Potassium 4.2 mMol/L (3.4-5.1); Sodium 144 mMol/L (136-145); Total Protein 7.8 gm/dL (5.7-8.2); eGFR 21 See Note
--- NOTE | 2025-09-03 10:20 | EKG_ITS ---
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
== END | disposition home or self-care (01) ==
LOC: SCAT 09:15
PROVIDERS: PCP Physician Assistant; Referring Provider Internal Medicine Hematology & Oncology; Visit Provider Internal Medicine Hematology & Oncology
DX: C50.911 Malignant neoplasm of unspecified site of right female breast (principal)
CPT/HCPCS: 36415; 80053; 85025; 93005